=== PATIENT | female | born 1995 | race Caucasian/White ===

== ENCOUNTER 2017-02-21 19:34 | Observation (INO) | payer MEDICAID ==
[~2017-02-21] VITALS: Ht 162.6 cm; Wt 68.0 kg
[2017-02-21] MEDS ORDERED: ONDANSETRON ODT 4 MG ONE ×2 (19:54→20:06)
[2017-02-21] MEDS ORDERED: ONDANSETRON ODT 4 MG PO ONE ×2 (20:00→20:30)
[2017-02-21 21:15] LABS: ASPARTATE AMINO TRANSFERASE 14 U/L (15-37); BLOOD UREA NITROGEN 10 mg/dL (7-18)
[2017-02-21] MEDS ORDERED: LORazepam 2 MG/ML, 1ML ONE (21:28)
[2017-02-21] MEDS ORDERED: METOCLOPRAMIDE 5 MG/ML, 2ML ONE (21:28)
[2017-02-21] MEDS ORDERED: LORazepam 2 MG/ML, 1ML IVPush ONE (21:30)
[2017-02-21] MEDS ORDERED: METOCLOPRAMIDE 5 MG/ML, 2ML IVPush ONE (21:30)
[2017-02-21] MEDS ORDERED: SODIUM CHLORIDE 0.9% 1,000ML IVBOLUS ONE (21:30)
[2017-02-21] MEDS ORDERED: ONDANSETRON 2MG/ML, 2ML IVPush ONE (21:30)
[2017-02-21] MEDS ORDERED: SODIUM CHLORIDE FLUSH 10ML SYR IVF ONE (21:30)
[2017-02-21 21:40] LABS: DIFF TOTAL CELLS COUNTED 100 CELL DIFF
[2017-02-21 21:42] LABS: VERIFY COUNTS? YES
[2017-02-21 21:43] LABS: LARGE PLATELETS 1+
[2017-02-21] MEDS ORDERED: PHENAZOPYRIDINE 200 MG TABLET ONE (22:22)
[2017-02-21] MEDS ORDERED: MORPHINE SULFATE 4 MG/ML, 1ML ONE (22:23)
[2017-02-21] MEDS ORDERED: MORPHINE SULFATE 4 MG/ML, 1ML IVPush PRN (23:00)
[2017-02-22] MEDS ORDERED: ACETAMINOPHEN 325 MG TABLET PO PRN
[2017-02-22] MEDS ORDERED: ENOXAPARIN 40 MG/0.4 ML SQ SCH
[2017-02-22] MEDS ORDERED: ONDANSETRON 2MG/ML, 2ML IVPush PRN
[2017-02-22] MEDS ORDERED: morphine SULFATE 10 MG/ML, 1ML IVPush PRN
[2017-02-22 00:17] VITALS: BP 118/70
[2017-02-22] MEDS: D5%-0.45% NACL 1,000 ML IV SCH ×3 (01:05→12:57)
[2017-02-22 03:25] VITALS: BP 103/55
[2017-02-22 05:43] LABS: BLOOD UREA NITROGEN 8 mg/dL (7-18)
[2017-02-22 07:41] VITALS: BP 116/73
[2017-02-22] MEDS ORDERED: CEFD300C37 PO (09:29)
[2017-02-22] MEDS ORDERED: PROM25SU34 RC (09:32)
== END 2017-02-22 13:20 | disposition home or self-care (01) ==
LOC: ED 21:49 → EDIP 22:33 → INTOOBSV 22:33 → 4NOR 23:50
PROVIDERS: ADMIT Hospitalist; ATTEND Hospitalist
DX: O21.9 Vomiting of pregnancy, unspecified (principal); O99.111 Other diseases of the blood and blood-forming organs and certain disorders involving the immune mechanism complicating pregnancy, first trimester; O99.281 Endocrine, nutritional and metabolic diseases complicating pregnancy, first trimester; D72.829 Elevated white blood cell count, unspecified; E86.0 Dehydration; E87.6 Hypokalemia; O26.831 Pregnancy related renal disease, first trimester; N17.0 Acute kidney failure with tubular necrosis; R73.9 Hyperglycemia, unspecified; O26.891 Other specified pregnancy related conditions, first trimester; F12.90 Cannabis use, unspecified, uncomplicated; R10.9 Unspecified abdominal pain; Z3A.01 Less than 8 weeks gestation of pregnancy; Z87.891 Personal history of nicotine dependence
CPT/HCPCS: 36415; 76830; 80048; 80053; 81001; 83690; 84702; 85025; 87086; 96361; 96372; 96374; 96375; 99285; G0378; J1650; J2060; J2765; J7030; Q0162

== ENCOUNTER 2017-06-16 11:59 | Emergency (ER) | payer MEDICAID ==
[~2017-06-16] VITALS: Ht 162.6 cm; Wt 61.0 kg
[~2017-06-16 11:59] MED LIST: CEFD300C37 PO; PROM25SU34 RC
[2017-06-16] MEDS ORDERED: SODIUM CHLORIDE FLUSH 10ML SYR IVF ONE (12:30)
[2017-06-16] MEDS ORDERED: SODIUM CHLORIDE 0.9% 1,000ML IVBOLUS ONE (12:30)
[2017-06-16 12:53] LABS: HEMATOCRIT 45.1 % (34.6-47.8); HEMOGLOBIN 15.4 g/dL (11.7-16.4)
[2017-06-16] MEDS ORDERED: ONDANSETRON 2MG/ML, 2ML IVPush ONE (13:00)
[2017-06-16 13:06] LABS: BLOOD UREA NITROGEN 11 mg/dL (7-18)
[2017-06-16 13:12] LABS: ASPARTATE AMINO TRANSFERASE 19 U/L (15-37)
[2017-06-16] MEDS ORDERED: MORPHINE SULFATE 4 MG/ML, 1ML ONE ×2 (13:12→13:35)
[2017-06-16] MEDS ORDERED: ONDANSETRON 2MG/ML, 2ML ONE (13:13)
[2017-06-16] MEDS: MORPHINE SULFATE 4 MG/ML, 1ML IVPush PRN ×2 (13:16→13:41)
[2017-06-16 15:13] LABS: PATH.CAST-FLAG NOT PRESENT; SPERM-FLAG NOT PRESENT; SRC-FLAG NOT PRESENT; XTAL-FLAG NOT PRESENT; YLC-FLAG NOT PRESENT
[2017-06-16] MEDS ORDERED: OMNIPAQUE 350 MG/ML, 100ML BOTTLE ONE (15:25)
[2017-06-16 16:34] VITALS: BP 126/64
== END 2017-06-16 16:37 | disposition home or self-care (01) ==
LOC: ED 14:03
DX: R10.84 Generalized abdominal pain (principal); D72.829 Elevated white blood cell count, unspecified; F17.210 Nicotine dependence, cigarettes, uncomplicated
CPT/HCPCS: 36415; 74177; 80053; 81001; 83690; 84703; 85025; 87086; 96361; 96374; 96375; 99285; J2405; J7030; Q9967

== ENCOUNTER 2017-11-23 17:12 | Emergency (ER) | payer MEDICAID ==
[~2017-11-23] VITALS: Ht 165.1 cm; Wt 55.5 kg
[2017-11-23] MEDS ORDERED: ONDANSETRON 2MG/ML, 2ML IVPush ONE (18:00)
[2017-11-23] MEDS ORDERED: SODIUM CHLORIDE FLUSH 10ML SYR IVF ONE (18:00)
[2017-11-23] MEDS ORDERED: SODIUM CHLORIDE 0.9% 1,000ML IVBOLUS ONE (18:00)
[2017-11-23 18:27] LABS: BASOPHILS # (AUTO) 0.01 x10^3/uL (0-0.1); BASOPHILS % (AUTO) 0 % (0-1); EOSINOPHILS % (AUTO) 0 % (1-7); LYMPHOCYTES # (AUTO) 1.14 x10^3/uL (1-3.4); LYMPHOCYTES % (AUTO) 6 % (22-44); MD NO; MEAN CORPUSCULAR HEMOGLOBIN 29.9 pg (27.0-34.8); MEAN CORPUSCULAR HGB CONC 33.9 g/dL (32.4-35.8); MEAN CORPUSCULAR VOLUME 88.4 fL (80-100); MEAN PLATELET VOLUME 8.5 fL (7.4-10.4); MONOCYTES # (AUTO) 0.22 x10^3/uL (0.2-0.8); MONOCYTES % (AUTO) 1 % (2-9); NEUTROPHILS # (AUTO) 16.36 x10^3/uL (1.8-6.8); NEUTROPHILS % (AUTO) 92 % (42-75); PLATELET COUNT 287 x10^3/uL (130-400); RED BLOOD COUNT 5.03 x10^6/uL (3.82-5.3); RED CELL DISTRIBUTION WIDTH 13.2 % (9.6-15.2)
[2017-11-23 18:40] LABS: ALANINE AMINOTRANSFERASE 17 U/L (12-78); ALBUMIN 3.9 g/dL (3.4-5.0); ANION GAP 12 mmol/L (5-15); CALCIUM 9.2 mg/dL (8.5-10.1); CHLORIDE 107 mmol/L (98-107); CREATININE 0.84 mg/dL (0.55-1.02)
[2017-11-23 18:57] LABS: ALKALINE PHOSPHATASE 37 U/L (45-117); BILIRUBIN,TOTAL 0.9 mg/dL (0.2-1.0)
[2017-11-23] MEDS ORDERED: ONDANSETRON 2MG/ML, 2ML ONE (19:57)
[2017-11-23] MEDS ORDERED: DICYCLOMINE 10 MG/ML, 2ML ONE (20:18)
[2017-11-23] MEDS ORDERED: ACETAMINOPHEN 325 MG TABLET ONE (20:18)
[2017-11-23] MEDS ORDERED: DICYCLOMINE 10 MG/ML, 2ML IM ONE (20:30)
[2017-11-23] MEDS ORDERED: ACETAMINOPHEN 325 MG TABLET PO ONE (20:30)
[2017-11-23 21:37] LABS: MICROSCOPIC NOT IND
[2017-11-23 21:38] LABS: CULTURE INDICATED? NO
[2017-11-23] MEDS ORDERED: PROMETHAZINE 25 MG/ML, 1ML ONE (22:13)
[2017-11-23] MEDS ORDERED: PROMETHAZINE 25 MG/ML, 1ML IM ONE (22:30)
[2017-11-24 00:22] VITALS: BP 110/60
== END 2017-11-24 00:26 | disposition home or self-care (01) ==
LOC: ED 20:05 → EDIP 23:32 → UNDOADMIN 23:32 → ED 11-24 00:26
DX: O26.891 Other specified pregnancy related conditions, first trimester (principal); O99.281 Endocrine, nutritional and metabolic diseases complicating pregnancy, first trimester; E86.0 Dehydration; Z3A.01 Less than 8 weeks gestation of pregnancy; Z79.899 Other long term (current) drug therapy
CPT/HCPCS: 36415; 76801; 80053; 80307; 81003; 83690; 84702; 85025; 96361; 96372; 96374; 99285; J0500; J2405; J2550; J7030

== ENCOUNTER 2017-11-25 10:29 | Inpatient (IN) | payer MEDICAID ==
[~2017-11-25] VITALS: Ht 165.1 cm; Wt 52.4 kg
[2017-11-25] MEDS ORDERED: SODIUM CHLORIDE 0.9% 1,000 ML IV ONE (11:15)
[2017-11-25] MEDS ORDERED: DICYCLOMINE 10 MG/ML, 2ML ONE (11:25)
[2017-11-25] MEDS ORDERED: FAMOTIDINE 20 MG/2 ML ONE (11:26)
[2017-11-25] MEDS ORDERED: FAMOTIDINE 20 MG/2 ML IVP ONE (11:30)
[2017-11-25] MEDS ORDERED: METOCLOPRAMIDE 5 MG/ML, 2ML IVPush ONE (11:30)
[2017-11-25] MEDS ORDERED: DICYCLOMINE 10 MG/ML, 2ML IM ONE (11:30)
[2017-11-25] MEDS ORDERED: SODIUM CHLORIDE 0.9% 1,000ML IVBOLUS ONE (11:30)
[2017-11-25] MEDS ORDERED: SODIUM CHLORIDE FLUSH 10ML SYR IVF ONE (11:30)
[2017-11-25 11:31] LABS: BASOPHILS # (AUTO) 0.02 x10^3/uL (0-0.1); BASOPHILS % (AUTO) 0 % (0-1); EOSINOPHILS # (AUTO) 0.01 x10^3/uL (0-0.4); EOSINOPHILS % (AUTO) 0 % (1-7); LYMPHOCYTES # (AUTO) 2.15 x10^3/uL (1-3.4); LYMPHOCYTES % (AUTO) 13 % (22-44); MD NO; MEAN CORPUSCULAR HEMOGLOBIN 29.9 pg (27.0-34.8); MEAN CORPUSCULAR HGB CONC 33.9 g/dL (32.4-35.8); MEAN CORPUSCULAR VOLUME 88.3 fL (80-100); MEAN PLATELET VOLUME 8.9 fL (7.4-10.4); MONOCYTES # (AUTO) 1.02 x10^3/uL (0.2-0.8); MONOCYTES % (AUTO) 6 % (2-9); NEUTROPHILS # (AUTO) 13.32 x10^3/uL (1.8-6.8); NEUTROPHILS % (AUTO) 81 % (42-75); PLATELET COUNT 266 x10^3/uL (130-400); RED BLOOD COUNT 4.71 x10^6/uL (3.82-5.3); RED CELL DISTRIBUTION WIDTH 13.4 % (9.6-15.2)
[2017-11-25 11:44] LABS: ALBUMIN 3.7 g/dL (3.4-5.0); ANION GAP 11 mmol/L (5-15); CALCIUM 8.1 mg/dL (8.5-10.1); CHLORIDE 105 mmol/L (98-107)
[2017-11-25 12:03] LABS: ALANINE AMINOTRANSFERASE 19 U/L (12-78); ALKALINE PHOSPHATASE 33 U/L (45-117); BILIRUBIN,TOTAL 0.5 mg/dL (0.2-1.0); CREATININE 0.87 mg/dL (0.55-1.02); TOTAL PROTEIN 7.4 g/dL (6.4-8.2)
[2017-11-25] MEDS ORDERED: PROMETHAZINE 25 MG/ML, 1ML ONE (12:03)
[2017-11-25 12:11] LABS: CULTURE INDICATED? YES; MICROSCOPIC INDICATED
[2017-11-25] MEDS ORDERED: PROMETHAZINE 25 MG/ML, 1ML IM ONE (12:30)
[2017-11-25] MEDS ORDERED: MORPHINE SULFATE 4 MG/ML, 1ML IVPush ONE (13:00)
[2017-11-25] MEDS ORDERED: MORPHINE SULFATE 4 MG/ML, 1ML ONE (13:07)
[2017-11-25 15:44] VITALS: BP 102/62
[2017-11-25] MEDS ORDERED: SODIUM CHLORIDE 0.9% 1,000 ML IV SCH (17:00)
[2017-11-25] MEDS ORDERED: ONDANSETRON 2MG/ML, 2ML IVPush PRN (17:00)
[2017-11-25] MEDS: SODIUM CHLORIDE 0.9% 1,000 ML IV SCH (17:27)
[2017-11-25] MEDS ORDERED: morphine SULFATE 10 MG/ML, 1ML IVPush PRN (17:30)
[2017-11-25] MEDS ORDERED: BISACODYL 10 MG SUPP PR PRN (17:30)
[2017-11-25] MEDS ORDERED: HYDROcodone/APAP 5/325 TABLET PO PRN (17:30)
[2017-11-25] MEDS ORDERED: ONDANSETRON ODT 4 MG PO PRN (17:30)
[2017-11-25] MEDS ORDERED: LABETALOL 5MG/ML, 20ML IVPush PRN (17:30)
[2017-11-25 17:49] LABS: C-REACTIVE PROTEIN, QUANT 0.16 mg/dL (0.02-0.49)
[2017-11-25 17:50] LABS: HCT (SEDRATE) 37.3 % (34.6-47.8)
[2017-11-25 17:58] LABS: FREE T4 (FREE THYROXINE) 1.2 ng/dL (0.76-1.46); THYROID STIMULATING HORMONE 0.289 mIU/L (0.358-3.740)
[2017-11-25 19:10] VITALS: BP 97/59
[2017-11-26] MEDS: SODIUM CHLORIDE 0.9% 1,000 ML IV SCH ×2 (02:45→13:48)
[2017-11-26] MEDS: ONDANSETRON 2MG/ML, 2ML IVPush PRN ×2 (02:56→08:51)
[2017-11-26 03:24] VITALS: BP 129/82
[2017-11-26 05:31] LABS: ANION GAP 10 mmol/L (5-15); CALCIUM 8.3 mg/dL (8.5-10.1); CHLORIDE 108 mmol/L (98-107)
[2017-11-26 05:35] LABS: CHOLESTEROL, TOTAL 104 mg/dL (140-239); HDL CHOL % 34 % (28-40); HDL CHOLESTEROL (DIRECT) 35 mg/dL (40-60); LDL CHOLESTEROL,CALCULATED 53 mg/dL (54-169); LDL/HDL RATIO 1.5 (0.5-3.0); TRIGLYCERIDES 79 mg/dL (50-200); VLDL CHOLESTEROL 16 mg/dL (0-25)
[2017-11-26 05:40] LABS: MEAN CORPUSCULAR HEMOGLOBIN 29.6 pg (27.0-34.8); MEAN CORPUSCULAR HGB CONC 33.7 g/dL (32.4-35.8); MEAN CORPUSCULAR VOLUME 87.8 fL (80-100); MEAN PLATELET VOLUME 8.9 fL (7.4-10.4); PLATELET COUNT 211 x10^3/uL (130-400); RED BLOOD COUNT 4.14 x10^6/uL (3.82-5.3); RED CELL DISTRIBUTION WIDTH 13.3 % (9.6-15.2)
[2017-11-26 06:17] LABS: BASOPHILS # (AUTO) 0.06 x10^3/uL (0-0.1); BASOPHILS % (AUTO) 0 % (0-1); EOSINOPHILS # (AUTO) 0.02 x10^3/uL (0-0.4); EOSINOPHILS % (AUTO) 0 % (1-7); LYMPHOCYTES # (AUTO) 2.41 x10^3/uL (1-3.4); LYMPHOCYTES % (AUTO) 15 % (22-44); MD SCAN; MONOCYTES # (AUTO) 1.07 x10^3/uL (0.2-0.8); MONOCYTES % (AUTO) 7 % (2-9); NEUTROPHILS # (AUTO) 12.29 x10^3/uL (1.8-6.8); NEUTROPHILS % (AUTO) 78 % (42-75)
[2017-11-26 07:01] VITALS: BP 123/79
[2017-11-26] MEDS ORDERED: PANTOPRAZOLE 40 MG IV IVPush SCH (07:30)
[2017-11-26] MEDS ORDERED: ONDA4TAB13 PO (14:03)
== END 2017-11-26 15:55 | disposition home or self-care (01) | DRG 781 ==
LOC: ED 11:21 → EDIP 13:22 → 3NE 15:24 → DCLOUNGE 11-26 15:45
PROVIDERS: ADMIT Internal Medicine; ATTEND Family Medicine
DX: O21.0 Mild hyperemesis gravidarum (principal); K85.00 Idiopathic acute pancreatitis without necrosis or infection; O99.321 Drug use complicating pregnancy, first trimester; O26.891 Other specified pregnancy related conditions, first trimester; F12.188 Cannabis abuse with other cannabis-induced disorder; E78.1 Pure hyperglyceridemia; E87.6 Hypokalemia; O99.281 Endocrine, nutritional and metabolic diseases complicating pregnancy, first trimester; T40.7X5A Adverse effect of cannabis (derivatives), initial encounter; Z3A.01 Less than 8 weeks gestation of pregnancy
CPT/HCPCS: 36415; 76700; 80048; 80053; 80061; 81001; 82330; 83690; 84439; 84443; 84702; 85025; 85651; 86140; 87086; 93005; 96361; 96372; 96374; 96375; J2405; J2550; C9113; J0500; J2270; J2765; J7030; S0028